=== PATIENT | female | born 1965 | race Caucasian/White ===

== ENCOUNTER 2021-01-12 17:45 | Emergency (ER) | payer SELFPAY ==
[~2021-01-12] VITALS: Ht 154.9 cm; Wt 49.0 kg
[~2021-01-12 17:45] MED LIST: DIAZ5TAB3 PO; HCTZ12.5T PO; HYDR-2890 PO; IBUP-30 PO; PRED20TA PO; RANI150T90 PO; [UNRECOGNIZED DRUG - OTHER] PO
[2021-01-12 17:48] VITALS: BP 103/67
[2021-01-12] MEDS ORDERED: LIDOCAINE 1% INJ 20 ML 20 ML VIAL ONE (17:59)
--- NOTE | 2021-01-12 18:03 | ED Upper Extremity ---
General Chief Complaint: Laceration Stated Complaint: L HAND INDEX FINGER LAC Source: patient Exam Limitations: no limitations History of Present Illness Date Seen by Provider: Jan 12, 2021 Time Seen by Provider: 17:57 Initial Comments This is a well-appearing 55-year-old female presents to the ER with complaints of finger laceration sustained with a clean kitchen knife approximate 20 minutes prior to arrival. Bleeding controlled with paper towels. She is not on any anticoagulation medications. Reports no significant medical history, denies history of diabetes. Onset: just prior to arrival Severity: mild Pain/Injury Location: left 2nd finger Method of Injury: incised Allergies and Home Medications Allergies Coded Allergies: No Known Drug Allergies (Unverified , 02/14/15) Home Medications Diazepam 5 Mg Tablet, 5 MG PO QID PRN for ANXIETY, (Reported) Hydrochlorothiazide 12.5 Mg Cap, 25 MG PO DAILY, (Reported) Ibuprofen 200 Mg Tablet, 200 MG PO Q6H PRN for PAIN, (Reported) Prednisone 20 Mg Tablet, 20 MG PO DAILY Prescribed by: PERFECTO MCCORMACK on 05/31/15 355 Ranitidine Hcl 150 Mg Tablet, 150 MG PO BID, (Reported) Patient Home Medication List Home Medication List Reviewed: Yes Review of Systems Constitutional: no symptoms reported EENTM: no symptoms reported Respiratory: no symptoms reported Cardiovascular: no symptoms reported Gastrointestinal: no symptoms reported Genitourinary: no symptoms reported Musculoskeletal: no symptoms reported Skin: see HPI Psychiatric/Neurological: No Symptoms Reported Past Plvxdrk-Bchgzo-Hexmgp Hx Past Medical History Abdominal, Breast, Cardiac, Section Coronary Artery Disease, Heart Attack Reproductive Disorders: No 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 oz. 49.021497lw; BMI Method:Stated General Appearance: WD/WN, no apparent distress HEENT: PERRL/EOMI, normal ENT inspection Neck: full range of motion, normal inspection Shoulder: normal inspection Elbow/Forearm: normal inspection Wrist: Yes normal inspection Hand: normal inspection Neurologic/Psychiatric: no motor/sensory deficits, alert, normal mood/affect, oriented x 3 Skin: normal color, warm/dry, other (1cm laceration to left second index finger pad ) Procedures/Interventions Wound Location: Other Other Wound Location Left second index finger pad. Wound Length (cm): 1 Wound's Depth, Shape: linear Wound Explored: clean Anesthesia: 1% Lidocaine Volume Anesthetic (ccs): 3 Suture: Ethlion Suture Size: 4-0 Number of Sutures: 4 Progress Permission obtained to have Medical Student Yoana Olvera MS4 repair laceration. Area was cleansed with normal saline and chlorhexidine wash. Finger tourniquet applied, was locally anesthetized with 1% lidocaine. 4 simple interrupted sutures were placed to approximate laceration, tolerated well. Applied JADA and dry dressing. Progress/Results/Core Measures Results/Orders My Orders Orders - JW FRIAS APRN Lidocaine 1% Inj 20 Ml (Xylocaine 1% Inj (01/12/21 18:15) Lidocaine 1% Inj 20 Ml (Xylocaine 1% Inj (01/12/21 17:59) Medications Given in ED Vital Signs/I&O Departure Impression Primary Impression: Laceration Disposition: 01 HOME, SELF-CARE Condition: Improved Departure-Patient Inst. Decision time for Depature: 18:28 Referrals: JAMILAH GARCIA MD (PCP/Family) Primary Care Physician Patient Instructions: Laceration Repair With Stitches (DC) Add. Discharge Instructions: Plan: 1. Discharge home. 2. May wash hands with soap and water, pat dry, cover with dry dressing. 3. Keep hand elevated above your heart as much as possible to reduce swelling. 4. Monitor for signs of infection: redness, swelling, drainage, persistent pain. Follow up with your doctor if symptoms develop. 5. Return to ER in 7 days for suture removal. 6. Return for any new or concerning symptoms. All discharge instructions reviewed with patient and/or family. Voiced understanding. JW FRIAS APRN Jan 12, 2021 18:03
[2021-01-12] MEDS ORDERED: LIDOCAINE 1% INJ 20 ML 20 ML VIAL INJ ONE (18:15)
== END 2021-01-12 18:41 | disposition home or self-care (01) ==
LOC: EDUNIT# 17:45 → ER 17:46
DX: S61.211A Laceration without foreign body of left index finger without damage to nail, initial encounter (principal); Z79.52 Long term (current) use of systemic steroids; W26.0XXA Contact with knife, initial encounter

== ENCOUNTER 2023-01-23 14:18 | Emergency (ER) | payer SELFPAY ==
[~2023-01-23] VITALS: Ht 155 cm; Wt 45.8 kg
[2023-01-23] MEDS ORDERED: NS IV 1000 ML 1,000 ML IV STA ×2 (14:47→17:23)
[2023-01-23 14:55] LABS: MEAN CORPUSCULAR HGB CONC 33 g/dL (32-36)
[2023-01-23 14:56] LABS: BASOPHILS # (AUTO) 0.1 10^3/uL (0.0-0.1); BASOPHILS % (AUTO) 1 % (0-10); EOSINOPHILS # (AUTO) 0.1 10^3/uL (0.0-0.3); EOSINOPHILS % (AUTO) 1 % (0-10); HEMATOCRIT 52 % (35-52); HEMOGLOBIN 17.2 g/dL (11.5-16.0); LYMPHOCYTES # (AUTO) 1.8 10^3/uL (1.0-4.0); LYMPHOCYTES % (AUTO) 11 % (12-44); MEAN CORPUSCULAR HEMOGLOBIN 26 pg (25-34); MEAN CORPUSCULAR VOLUME 78 fL (80-99); MEAN PLATELET VOLUME 9.4 fL (9.0-12.2); MONOCYTES % (AUTO) 6 % (0-12); NEUTROPHILS # (AUTO) 13.5 10^3/uL (1.8-7.8); NEUTROPHILS % (AUTO) 82 % (42-75); PLATELET COUNT 593 10^3/uL (130-400); WHITE BLOOD COUNT 16.5 10^3/uL (4.3-11.0)
--- NOTE | 2023-01-23 14:57 | ED Abdominal Pain ---
General Chief Complaint: Abdominal/GI Problems Stated Complaint: ABD/LOWER BACK PAIN| BLOOD IN URINE Source of Information: Patient Exam Limitations: No Limitations History of Present Illness Date Seen by Provider: Jan 23, 2023 Time Seen by Provider: 14:40 Initial Comments Patient is a 57-year-old female who presents to the emergency room with a chief complaint of lower abdominal pain, nausea vomiting this afternoon and blood in her urine. Patient states she had onset of lower abdominal pain 4 days ago. She states that she takes ibuprofen up to 6 daily for chronic pain issues. She takes no prescribed daily medications. Long-term smoker 1 pack/day. No allergies to medications. Prior C-sections but no other abdominal surgeries. Patient states she had a loose bowel movement just prior to arrival today (unusual for her - last BM prior was "a couple of days"). Nonblack nonbloody. She denies dysuria, urgency or frequency. She is no longer having menstrual cyc les. She states she has not had a kidney stone remotely and she thought that might be what this is. She noted a little blood in her urine just prior to arrival and on arrival was only able to produce 1 to 2 cc. She is quite nauseated currently. She denies shortness of breath or productive cough. No recent unintentional weight loss. No night sweats. Laying flat and going from supine to sitting makes her pain worse. She had gone to [facility] and was seen - No UA performed was diagnosed with "cystitis without hematuria" and given a RX for Bactrim and pyridium. SHe vomited today shortly after taking the first Bactrijm tablet, had worsening pain and presented for re-evaluation. Noted to be quite ill-appearing on arrival, tachycardic in the mid 120s. Blood pressure 109 systolic. Room air oxygen 90%. Poor skin turgor. Timing/Duration: 3-4 Days Severity/Quality: Severe ("9"), Aching Location: Generalized Abdomen (Worsening lower quadrant) Radiation: No Radiation Activities at Onset: None Modifying Factors: Worsens With Movement Associated Symptoms: Nausea/Vomiting, Weakness Allergies and Home Medications Allergies Coded Allergies: No Known Drug Allergies (Unverified , 02/14/15) Patient Home Medication List Home Medication List Reviewed: Yes Diazepam (Diazepam) 5 Mg Tablet, 5 MG PO QID PRN for ANXIETY, (Reported) Entered as Reported by: ASHLEY QUINONEZ on 02/14/15 0859 Hydrochlorothiazide (Hctz) 12.5 Mg Cap, 25 MG PO DAILY, (Reported) Entered as Reported by: ELIZABETH VALLECILLO on 05/31/15 181 Ibuprofen (Advil) 200 Mg Tablet, 200 MG PO Q6H PRN for PAIN, (Reported) Entered as Reported by: ASHLEY QUINONEZ on 02/14/15 0909 Prednisone (Prednisone) 20 Mg Tablet, 20 MG PO DAILY Prescribed by: PERFECTO MCCORMACK on 05/31/15 1855 Ranitidine Hcl (Acid Packaging Coordinator 150) 150 Mg Tablet, 150 MG PO BID, (Reported) Entered as Reported by: ASHLEY QUINONEZ on 02/14/15 0859 Review of Systems Review of Systems Constitutional: see HPI EENTM: No Symptoms Reported Respiratory: No Symptoms Reported Cardiovascular: No Symptoms Reported Gastrointestinal: Abdominal Pain, Diarrhea (Diarrhea x1 just prior to arrival), Nausea, Other Genitourinary: Hematuria Musculoskeletal: no symptoms reported Skin: no symptoms reported Psychiatric/Neurological: No Symptoms Reported All Other Systems Reviewed Negative Unless Noted: Yes Past Txxtxzt-Atrgpy-Uleasi Hx Past Medical History Abdominal, Breast, Cardiac, Section Coronary Artery Disease, Heart Attack Reproductive Disorders: No 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 oz. 49.801365nh; 20.00 BMI Method:Stated General Appearance: thin, other (Appears chronically ill) HEENT: PERRL/EOMI, other (Dry oral mucosa) Neck: normal inspection Respiratory: no respiratory distress, no accessory muscle use, other (Diminished throughout) Cardiovascular: no murmur, tachycardia (120's) Gastrointestinal: soft, abnormal bowel sounds (high pitched tinkling Bowel sounds), tenderness (diffuse tenderness with voluntary guarding) Extremities: normal range of motion, normal inspection, no pedal edema Neurologic/Psychiatric: alert, normal mood/affect, oriented x 3 Skin: normal color, warm/dry Focused Exam Lactate Level 01/23/23 15:12: Lactic Acid Level 1.56 Lactic Acid Level Laboratory Tests Test 01/23/23 15:12 Lactic Acid Level 1.56 MMOL/L (0.50-2.00) Procedures/Interventions Suture Size: 4-0 Progress/Results/Core Measures Results/Orders Lab Results Laboratory Tests Test 01/23/23 14:48 01/23/23 15:12 01/23/23 15:43 Range/Units White Blood Count 16.5 H 4.3-11.0 10^3/uL Red Blood Count 6.62 H 3.80-5.11 10^6/uL Hemoglobin 17.2 H 11.5-16.0 g/dL Hematocrit 52 35-52 % Mean Corpuscular Volume 78 L 80-99 fL Mean Corpuscular Hemoglobin 26 25-34 pg Mean Corpuscular Hemoglobin Concent 33 32-36 g/dL Red Cell Distribution Width 17.3 H 10.0-14.5 % Platelet Count 593 H 130-400 10^3/uL Mean Platelet Volume 9.4 9.0-12.2 fL Immature Granulocyte % (Auto) 1 % Neutrophils (%) (Auto) 82 H 42-75 % Lymphocytes (%) (Auto) 11 L 12-44 % Monocytes (%) (Auto) 6 0-12 % Eosinophils (%) (Auto) 1 0-10 % Basophils (%) (Auto) 1 0-10 % Neutrophils # (Auto) 13.5 H 1.8-7.8 10^3/uL Lymphocytes # (Auto) 1.8 1.0-4.0 10^3/uL Monocytes # (Auto) 1.0 0.0-1.0 10^3/uL Eosinophils # (Auto) 0.1 0.0-0.3 10^3/uL Basophils # (Auto) 0.1 0.0-0.1 10^3/uL Immature Granulocyte # (Auto) 0.1 0.0-0.1 10^3/uL Neutrophils % (Manual) 75 % Lymphocytes % (Manual) 16 % Monocytes % (Manual) 8 % Eosinophils % (Manual) 0 % Basophils % (Manual) 0 % Band Neutrophils 1 % Percent Immature Platelet Fraction 5.5 0.0-7.6 % Anisocytosis SLIGHT Prothrombin Time 13.7 12.2-14.7 SEC INR Comment 1.0 0.8-1.4 Activated Partial Thromboplast Time 28 24-35 SEC Sodium Level 130 L 135-145 MMOL/L Potassium Level 4.7 3.6-5.0 MMOL/L Chloride Level 96 L 98-107 MMOL/L Carbon Dioxide Level 21 21-32 MMOL/L Anion Gap 13 5-14 MMOL/L Blood Urea Nitrogen 15 7-18 MG/DL Creatinine 1.00 0.60-1.30 MG/DL Estimat Glomerular Filtration Rate 65 BUN/Creatinine Ratio 15 Glucose Level 123 H 70-105 MG/DL Calcium Level 9.3 8.5-10.1 MG/DL Corrected Calcium 9.5 8.5-10.1 MG/DL Total Bilirubin 0.6 0.1-1.0 MG/DL Aspartate Amino Transf (AST/SGOT) 11 5-34 U/L Alanine Aminotransferase (ALT/SGPT) 8 0-55 U/L Alkaline Phosphatase 70 40-136 U/L Total Protein 6.7 6.4-8.2 GM/DL Albumin 3.8 3.2-4.5 GM/DL Lactic Acid Level 1.56 0.50-2.00 MMOL/L Urine Color ORANGE Urine Clarity CLEAR Urine pH 6.5 5-9 Urine Specific Butternut 1.010 L 1.016-1.022 Urine Protein 2+ H NEGATIVE Urine Glucose (UA) 1+ H NEGATIVE Urine Ketones 1+ H NEGATIVE Urine Nitrite POSITIVE H NEGATIVE Urine Bilirubin 1+ H NEGATIVE Urine Urobilinogen >=8.0 < = 1.0 MG/DL Urine Leukocyte Esterase TRACE H NEGATIVE Urine RBC (Auto) NEGATIVE NEGATIVE Urine RBC NONE /HPF Urine WBC 0-2 /HPF Urine Squamous Epithelial Cells 5-10 /HPF Urine Crystals NONE /LPF Urine Bacteria FEW H /HPF Urine Casts PRESENT /LPF Urine Hyaline Casts 10-25 H /LPF Urine Mucus NEGATIVE /LPF Urine Culture Indicated CULTURE PENDING My Orders Orders - ANTOLIN WATERS MD Cbc With Automated Diff (01/23/23 14:47) Comprehensive Metabolic Panel (01/23/23 14:47) Blood Culture (01/23/23 14:47) Sputum Culture (01/23/23 14:47) Urinalysis (01/23/23 14:47) Urine Culture (01/23/23 14:47) Protime With Inr (01/23/23 14:47) Partial Thromboplastin Time (01/23/23 14:47) Chest 1 View, Ap/Pa Only (01/23/23 14:47) Ed Iv/Invasive Line Start (01/23/23 14:47) Ed Iv/Invasive Line Start (01/23/23 14:47) Vital Signs Adult Sepsis Patie Q15M (01/23/23 14:47) O2 (01/23/23 14:47) Remove Rings In Anticipation O (01/23/23 14:47) Lactic Acid Analyzer (01/23/23 14:47) Ns Iv 1000 Ml (Sodium Chloride 0.9%) (01/23/23 14:47) Ondansetron Injection (Zofran Injectio (01/23/23 15:00) Manual Differential (01/23/23 14:48) Ns Iv 1000 Ml (Sodium Chloride 0.9%) (01/23/23 15:45) Ct Abdomen/Pelvis W (01/23/23 15:35) Fentanyl Inj (Sublimaze Injection) (01/23/23 15:45) Iohexol Injection (Omnipaque 350 Mg/Ml 1 (01/23/23 16:00) Received Contrast (Hold Metformin- Contr (01/23/23 16:00) Ns (Ivpb) (Sodium Chloride 0.9% Ivpb Bag (01/23/23 16:00) Nicotine Patch (Nicoderm Patch) (01/23/23 17:30) Medications Given in ED Current Medications Medications Dose Ordered Sig/Uzair Route Start Time Stop Time Status Last Admin Dose Admin Fentanyl Citrate 50 mcg ONCE ONCE IVP 01/23/23 15:45 01/23/23 15:47 DC 01/23/23 15:50 50 MCG Iohexol 100 ml ONCE ONCE IV 01/23/23 16:00 01/23/23 16:01 DC 01/23/23 16:04 53 ML Ondansetron HCl 4 mg ONCE ONCE IVP 01/23/23 15:00 01/23/23 15:01 DC 01/23/23 15:10 4 MG Sodium Chloride 100 ml ONCE ONCE IV 01/23/23 16:00 01/23/23 16:01 DC 01/23/23 16:04 80 ML Vital Signs/I&O 01/23/23 01/23/23 14:26 14:26 Temp 36.9 Pulse 125 Resp 20 B/P (MAP) 106/80 (89) Pulse Ox 95 95 O2 Delivery Nasal Cannula Nasal Cannula O2 Flow Rate 2.00 2.00 Progress Progress Note : Time: 17:24 Progress Note Patient seen and evaluated, evaluation today includes physical exam, CBC, Chem- 12, lactic acid, urinalysis, blood cultures, chest x-ray, CT abdomen and pelvis with IV contrast. Physical exam pertinent for thin elderly appearing, frail 57-year-old in mild distress due to abdominal pain. Tachycardic in the 120s blood pressure in the upper 90s systolic. Hypoxic at 90% on room air. Slightly tachypneic. Heart is regular, lungs diminished throughout with no expiratory wheeze. Abdomen with high-pitched tinkling bowel sounds, nondistended diffusely tender mostly in the epigastrium voluntary guarding. No lower extremity edema. No focal neurologic deficits. Differential diagnosis based on history and physical exam, small bowel obstruction, gastric ulcer, pyelonephritis, perforated appendicitis, acute cholecystitis Labs reviewed, CBC Sslich shows a leukocytosis of 16,000 with high hemoglobin at 17,000. Chemistry is within normal limits, coags are within normal limits. Lactic is 1.5. Urine is nitrite positive with mild to moderate bacteria. Chest x-ray shows atelectasis at the bases possible infiltrate. CT abdomen and pelvis suggests developing small bowel obstruction. Patient is treated in the emergency room with IV normal saline, Zofran and fentanyl. She is also given Zosyn 4.5 g. Case was discussed with Dr. Alexandre, general surgery on-call as well as Dr. Avila hospitalist service. Patient will be admitted observation for possible early small bowel obstruction. IV fluids, n.p.o. status. She is quite anxious and tearful as she has a special needs adult daughter at home she wants to be home and take care of. I was able to convince her as was a family member at the bedside to stay and be monitored for 24-hour observation. On reevaluation when I am discussing the plan of care with her her abdomen is not as tender. She states that she is feeling better however I do have a suspicion that she is very apprehensive of admission. Remains somewhat tachycardic. Supplemental oxygen at 2 L has improved her SaO2 to 97%. She is agreeable at this time to observation admission Diagnostic Imaging Diagonstic Imaging: Xray Plain Films/CT/US/NM/MRI: chest Comments [facility] [place], [place] NAME: SHAUN AWAN [facility] REC#: [id number] PT STATUS: REG ER : 1965 PHYSICIAN: ANTOLIN WATERS MD ADMIT DATE: 01/23/23/ER Signed Date of Exam:01/23/23 CHEST 1 VIEW, AP/PA ONLY INDICATION: Abdominal pain and tachycardia. TIME OF EXAM: 3:23 PM. COMPARISON: Correlation is made with prior chest from 02/14/2015. FINDINGS: Heart size normal. Hemidiaphragms bilaterally elevated. There is some minimal infiltrate or atelectasis in the right base. Otherwise lungs are clear. No effusion or pneumothorax is seen. IMPRESSION: Minimal infiltrate or atelectasis in right base. Dictated by: Dictated on workstation # [id number] Dict: 01/23/23 1540 Trans: 01/23/23 1601 [facility] [id number] Interpreted by: ESHA MARTELL MD Electronically signed by: ESHA MARTELL MD 01/23/23 1601 Diagonstic Imaging: CT Comments [facility] [place] NAME: SHAUN AWAN [facility] REC#: [id number] PT STATUS: REG ER : 1965 PHYSICIAN: ANTOLIN WATERS MD ADMIT DATE: 01/23/23/ER Signed Date of Exam:01/23/23 CT ABDOMEN/PELVIS W EXAMINATION: CT abdomen and pelvis with intravenous contrast. TECHNIQUE: Multiple contiguous axial images were obtained through the abdomen and pelvis after the uneventful administration of intravenous contrast. All CT scans use one or more of the following dose optimizing techniques: automated exposure control, MA and/or KvP adjustment based on patient size and exam type or iterative reconstruction. HISTORY: Low abdominal pain. Decreased urine output. Concern for small bowel obstruction. COMPARISON: None available. FINDINGS: The heart is unremarkable. Subsegmental atelectasis is seen in the lung bases. Fluid-filled nondilated loops of small bowel are seen in the central abdomen. The colon is nondistended. There is relative decreased enhancement of the loops of small bowel relative to the decompressed colon. There is a small volume of free fluid in the abdomen and pelvis. No free air is identified. The portal vein is patent. The liver, spleen, pancreas, adrenal glands and kidneys have a normal appearance. There is no pathologically enlarged mesenteric or retroperitoneal adenopathy. No acute osseous abnormality. There is calcified aortic and iliac atherosclerotic plaque without aneurysm. Ureters and bladder are grossly normal. There is no free air, loculated collection or adenopathy in the pelvis. IMPRESSION: 1. Findings concerning for early small bowel obstruction versus ileus. Components of ischemia involving the nondilated fluid-filled loops of small bowel is also possible. No evidence of thrombus is identified. Recommend correlation with laboratory values and continued close follow-up. 2. Small volume of free fluid in the abdomen and pelvis. No free air. Dictated by: Dictated on workstation # [id number] Dict: 01/23/23 1606 Trans: 01/23/23 1623 [facility] [id number] Interpreted by: HARRIET NICKERSON DO Electronically signed by: HARRIET NICKERSON DO 01/23/23 1623 Departure Communication (Admissions) Time/Spoke to Admitting Phy: 17:[address] Avila (hospitalist) Time/Spoke to Consulting Phy: 16:[address] Alexandre Impression Primary Impression: Partial small bowel obstruction Additional Impressions: UTI (urinary tract infection) Qualified Codes: N39.0 - Urinary tract infection, site not specified COPD (chronic obstructive pulmonary disease) Qualified Codes: J44.9 - Chronic obstructive pulmonary disease, unspecified Disposition: ADMITTED INPATIENT Condition: Stable Admissions Decision to Admit Reason: Admit from ER (General) Decision to Admit/Date: Jan 23, 2023 Time/Decision to Admit Time: 17:26 Departure-Patient Inst. Referrals: JAMILAH GARCIA MD (PCP/Family) Primary Care Physician Copy Copies To 1: JAMILAH GARCIA MD Copies To 2: CLAUDIA DE JESUS KATHRYN M MD Jan 23, 2023 14:57
[2023-01-23] MEDS ORDERED: ONDANSETRON 4 MG/2 ML (SDV) Z0FRAN IVP ONE (15:00)
[2023-01-23 15:04] LABS: ALBUMIN 3.8 GM/DL (3.2-4.5)
[2023-01-23 15:05] LABS: POTASSIUM 4.7 MMOL/L (3.6-5.0)
[2023-01-23 15:06] LABS: CALCIUM 9.3 MG/DL (8.5-10.1)
[2023-01-23 15:07] LABS: PROTHROMBIN TIME PATIENT 13.7 SEC (12.2-14.7); TOTAL PROTEIN 6.7 GM/DL (6.4-8.2)
[2023-01-23 15:09] LABS: BILIRUBIN,TOTAL 0.6 MG/DL (0.1-1.0)
[2023-01-23 15:23] LABS: ANISOCYTOSIS SLIGHT; BAND NEUTROPHILS 1 %; BASOPHILS % (MANUAL) 0 %; EOSINOPHILS % (MANUAL) 0 %; LYMPHOCYTES % (MANUAL) 16 %; MONOCYTES % (MANUAL) 8 %; NEUTROPHILS % (MANUAL) 75 %
[2023-01-23] MEDS ORDERED: fentaNYL INJ 100 MCG/2 ML AMP IVP ONE (15:45)
[2023-01-23] MEDS ORDERED: NS IV 1000 ML 1,000 ML IV SCH (15:45)
--- NOTE | 2023-01-23 15:45 | Diagnostic Imaging Report ---
INDICATION: Abdominal pain and tachycardia. TIME OF EXAM: 3:23 PM. COMPARISON: Correlation is made with prior chest from 02/14/2015. FINDINGS: Heart size normal. Hemidiaphragms bilaterally elevated. There is some minimal infiltrate or atelectasis in the right base. Otherwise lungs are clear. No effusion or pneumothorax is seen. IMPRESSION: Minimal infiltrate or atelectasis in right base. Dictated by: Dictated on workstation # [id number]
[2023-01-23 15:51] LABS: CLARITY,URINE CLEAR; COLOR,URINE ORANGE; GLUCOSE, URINE (UA) 1+ (NEGATIVE); KETONES,URINE 1+ (NEGATIVE); LEUKOCYTE ESTERASE ,URINE TRACE (NEGATIVE); NITRITE,URINE POSITIVE (NEGATIVE); PH,URINE 6.5 (5-9); PROTEIN,URINE 2+ (NEGATIVE)
[2023-01-23] MEDS ORDERED: HOLD METFORMIN - RECEIVED CONTRAST 20 ML VIAL IV SCH (16:00)
[2023-01-23] MEDS ORDERED: IOHEXOL 350 MG/ML 100 ML (OMNIPAQUE 350) VIAL IV ONE (16:00)
[2023-01-23] MEDS ORDERED: NS 100 ML (IVPB) BAG IV ONE (16:00)
[2023-01-23 16:06] LABS: BACTERIA,URINE FEW /HPF; BILIRUBIN,URINE 1+ (NEGATIVE); WBC,URINE 0-2 /HPF
--- NOTE | 2023-01-23 16:15 | Diagnostic Imaging Report ---
EXAMINATION: CT abdomen and pelvis with intravenous contrast. TECHNIQUE: Multiple contiguous axial images were obtained through the abdomen and pelvis after the uneventful administration of intravenous contrast. All CT scans use one or more of the following dose optimizing techniques: automated exposure control, MA and/or KvP adjustment based on patient size and exam type or iterative reconstruction. HISTORY: Low abdominal pain. Decreased urine output. Concern for small bowel obstruction. COMPARISON: None available. FINDINGS: The heart is unremarkable. Subsegmental atelectasis is seen in the lung bases. Fluid-filled nondilated loops of small bowel are seen in the central abdomen. The colon is nondistended. There is relative decreased enhancement of the loops of small bowel relative to the decompressed colon. There is a small volume of free fluid in the abdomen and pelvis. No free air is identified. The portal vein is patent. The liver, spleen, pancreas, adrenal glands and kidneys have a normal appearance. There is no pathologically enlarged mesenteric or retroperitoneal adenopathy. No acute osseous abnormality. There is calcified aortic and iliac atherosclerotic plaque without aneurysm. Ureters and bladder are grossly normal. There is no free air, loculated collection or adenopathy in the pelvis. IMPRESSION: 1. Findings concerning for early small bowel obstruction versus ileus. Components of ischemia involving the nondilated fluid-filled loops of small bowel is also possible. No evidence of thrombus is identified. Recommend correlation with laboratory values and continued close follow-up. 2. Small volume of free fluid in the abdomen and pelvis. No free air. Dictated by: Dictated on workstation # [id number]
[2023-01-23] MEDS ORDERED: PIPERACILLIN SODIUM/TAZOBACTAM 4.5 GM in NS (IVPB) 100 ML IV ONE (17:30)
[2023-01-23] MEDS ORDERED: NICOTINE 21 MG (NICODERM) PATCH TD ONE (17:30)
[2023-01-23 19:34] VITALS: BP 125/20
[2023-01-23] MEDS ORDERED: RT-ALBUTEROL/IPRATROPIUM 3 ML (DUONEB) VIAL INH PRN (19:45)
--- NOTE | 2023-01-23 20:45 | Short Stay Summary-Hospitalist ---
History of Present Illness Date Seen 01/23/23 Time Seen by a Provider: 20:42 Attending Physician Morgan Leung MD PCP Admitting Physician: Romana Avila MD Attending Physician: Romana Avila MD Referring Physician Date of Admission Jan 23, 2023 at 18:58 Home Medications & Allergies Home Medications Reviewed patient Home Medication Reconciliation performed by pharmacy medication reconciliations industrial manufacturing technician and/or nursing. Patients Allergies have been reviewed. Allergies Allergies Coded Allergies No Known Drug Allergies (Unverified02/14/15) Past [place]-Obpzqs-Yzuvuw Hx Patient Social History Tobacco Use?: Yes Tobacco type used: Cigarettes Smoking Status: Current Everyday Smoker Use of E-Cig and/or Vaping dev: No Substance use?: No Alcohol Use?: No Pt feels they are or have been: No Current Status status: No Advance Directives: No Communicates: Verbally Primary Language: [place] Preferred Spoken Language: [place] Is interpretation needed?: No Sensory deficits: Vision impairment Past Medical History Surgeries: Abdominal, Breast, Cardiac, Section Coronary Artery Disease, Heart Attack OCCUPATIONAL HEALTH NURSE MANAGER History: Menopausal Sexually Transmitted Disease: No Ulcer Arthritis, Chronic Back Pain Family Medical History Heart Disease, Diabetes Review of Systems Constitutional: see HPI Physical Exam Physical Exam Vital Signs Vital Signs - First Documented 01/23/23 19:34 FiO2 28 Capillary Refill : Less Than 3 Seconds Height, Weight, BMI Height: 5'2" Weight: 110lbs. oz. 49.690778td; 19.00 BMI Method:Stated General Appearance: Other Results Results/Procedures Labs Laboratory Tests 01/23/23 14:48 Patient resulted labs reviewed. Short Stay Diagnosis Discharge Diagnosis-Short Stay Admission Diagnosis see below Final Discharge Diagnosis see below Conclusion Plan Patient elected to leave A prior to being seen. This is for documentation purposes only. She was not physicially seen. ROMANA AVILA MD Jan 23, 2023 20:45
[2023-01-23] MEDS ORDERED: RT-ALBUTEROL/IPRATROPIUM 3 ML (DUONEB) VIAL INH SCH (21:00)
== END 2023-01-23 18:45 | disposition other institution (70) ==
LOC: EDUNIT# 14:18 → ER 14:20 → 4TH 18:58 → UNDOADMOB 18:58 → UNDODISOB 19:35
DX: K56.600 Partial intestinal obstruction, unspecified as to cause (principal); N39.0 Urinary tract infection, site not specified; J44.9 Chronic obstructive pulmonary disease, unspecified; J98.11 Atelectasis; G89.29 Other chronic pain; Z79.1 Long term (current) use of non-steroidal anti-inflammatories (NSAID); F17.210 Nicotine dependence, cigarettes, uncomplicated; Z28.310 Unvaccinated for COVID-19
CPT/HCPCS: 36415; 71045; 74177; 80053; 81000; 83605; 85007; 85027; 85610; 85730; 87040; 87088